=== PATIENT | male | born 1990 | race Caucasian/White ===

== ENCOUNTER 2016-10-11 21:31 | Emergency (ER) | payer OTHER ==
[~2016-10-11] VITALS: Ht 180.3 cm; Wt 86.0 kg
[~2016-10-11 21:31] MED LIST: BACT800T5 PO; CEPH-460 PO
[2016-10-11 21:33] VITALS: BP 124/78; PULSE 78; RESP 16; TEMP 97.9; O2SAT 97
--- NOTE | 2016-10-11 22:35 | PD ---
HPI Chief Complaint: Fall Time Seen by Provider: 22:32 Travel History International Travel<30 days: No Contact w/Intl Traveler<30days: No Traveled to known affect area: No History of Present Illness HPI 26-year-old [id number] white male presents emergency department for evaluation of left elbow pain. He states that he went to slide underneath his vehicle on a piece of cardboard when he slid off striking his left elbow on the concrete. He states that he had immediate pain and tingling in his hand like hitting his funny bone. He has had persistent pain in his elbow since then. It occurred sometime around 5 PM. Pain is moderate. No focal weakness. No other injury. PFSH Past Medical History Medical History: Denies Significant Hx Diminished Hearing: No Immunizations Current: Yes Tetanus Vaccination: < 5 Years Past Surgical History Surgical History: No Previous Surgery Social History Alcohol Use: Yes (SOC) Tobacco Use: Yes Substance Use: No Allergies-Medications (Allergen,Severity, Reaction): Coded Allergies: No Known Allergies (Verified , 10/11/16) Reported Meds & Prescriptions Reported Meds & Active Scripts Active Diclofenac Sodium DR (Diclofenac Sodium) 50 Mg Tabdr 50 Mg PO TID Review of Systems Except as stated in HPI: all other systems reviewed are Neg Physical Exam Narrative GENERAL: Well-developed, well-nourished in no acute distress. Nontoxic appearing. HEAD: Normocephalic, atraumatic. EYES: Pupils equal round and reactive. Extraocular motions intact. No scleral icterus. No injection or drainage. ENT: TMs clear without erythema. The external auditory canals clear. Nose: clear . Posterior pharynx is pink and moist. No tonsillar edema or exudate. Uvula midline. Airway patent. NECK: Trachea midline.Supple, nontender, moves head freely. No central bony tenderness or spasm. CARDIOVASCULAR: Regular rate and rhythm without murmurs, gallops, or rubs. RESPIRATORY: Clear to auscultation. Breath sounds equal bilaterally. No wheezes , rales, or rhonchi. GASTROINTESTINAL: Abdomen soft, non-tender, nondistended. No hepato-splenomegaly , or palpable masses. No guarding. EXTREMITIES: No clubbing, cyanosis, or edema. No joint tenderness, effusion, or edema noted. Examination of the left upper extremity reveals tenderness over the lateral portion of the epicondyle. No crepitus. There is minimal swelling. He is able to fully extend and flex his arm at the elbow. He is able supinate and pronate. The skin is intact. No pain in the wrist, hand. He has intact median/ulnar/radial nerves. BACK: Nontender without deformity or crepitance. No flank tenderness. Data Data Last Documented VS Vital Signs Date Time Temp Pulse Resp B/P Pulse Ox O2 Delivery O2 Flow Rate FiO2 10/11/16 21:33 97.9 78 16 124/78 97 Room Air Orders Elbow, Complete (4 Vws) (10/11/16 22:31) Ice/Cold Pack (10/11/16 22:31) Acetamin-Hydrocod 325-5 Mg ([place] 5-325 (10/11/16 22:45) Ibuprofen (Motrin) (10/11/16 22:45) MDM Medical Decision Making Medical Screen Exam Complete: Yes Emergency Medical Condition: Yes Medical Record Reviewed: Yes Interpretation(s) X-ray left elbow: Negative for acute bony injury Differential Diagnosis MDM: High Differential diagnoses: Fracture, sprain, strain, dislocation, contusion, neurovascular injury Narrative Course X-rays of the left elbow are negative for trauma. Patient's given Lortab 5 mg by mouth and Motrin 800 mg by mouth. This left elbow contusion Diagnosis Primary Impression: Left elbow contusion Patient Instructions: Narcotic given in the ED, General Instructions Additional Instructions: Rest. Elevation. Ice for the next 1-2 days. Diclofenac. Limited use of the left arm until pain resolves. Follow-up with a primary care doctor in 1 week. Return to ER for any problems. Med/Other Pt SpecificInfo: Prescription(s) given Scripts Diclofenac Sodium DR 50 Mg Tabdr50 Mg PO TID #30 TAB Prov:Shankar Arcos MD 10/11/16 Disposition: 01 DISCHARGE HOME Condition: Stable Jeremiah Fernandez Oct 11, 2016 22:35
[2016-10-11] MEDS ORDERED: DICL50TA3 PO (22:36)
[2016-10-11] MEDS ORDERED: IBUPROFEN 800 MG TAB PO ONE (22:45)
[2016-10-11] MEDS ORDERED: ACETAMINOPHEN/HYDROcodone 325 MG/5 MG TAB PO ONE (22:45)
--- NOTE | 2016-10-11 22:57 | RADRPT ---
EXAM DATE/TIME: 10/11/2016 22:54 [facility] COMPARISON: ELBOW LEFT COMPLETE (4 VWS), October 11, 2014, 14:38. INDICATIONS : Fall. Left elbow pain. MEDICAL HISTORY : None. SURGICAL HISTORY : None. ENCOUNTER: Initial ACUITY: 1 day PAIN SCORE: 8/10 LOCATION: Left upper extremity FINDINGS: Multiple view examination of the left elbow demonstrates no soft tissue swelling, joint effusion, or fracture. The osseous structures are in normal alignment. Bony mineralization is normal. CONCLUSION: Unremarkable examination of the left elbow. Venancio Al Jr., MD on October 11, 2016 at 22:54 Board Certified Radiologist. This report was verified electronically.
== END 2016-10-12 00:01 | disposition home or self-care (01) ==
LOC: NEPB 21:31
DX: Z72.0 Tobacco use (principal); S50.02XA Contusion of left elbow, initial encounter; W22.8XXA Striking against or struck by other objects, initial encounter; Y93.89 Activity, other specified
CPT/HCPCS: 73080; 99283

== ENCOUNTER 2017-10-30 01:04 | Emergency (ER) | payer SELFPAY ==
[~2017-10-30] VITALS: Ht 180.3 cm; Wt 93.7 kg
[~2017-10-30 01:04] MED LIST changes: -BACT800T5 PO; -CEPH-460 PO; +DICL50TA3 PO
[2017-10-30 01:15] VITALS: BP 149/89; PULSE 83; RESP 12; TEMP 98.1; O2SAT 98
[2017-10-30 02:53] VITALS: BP 127/79; PULSE 67; RESP 20; O2SAT 98
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
[2017-10-30] MEDS ORDERED: BUTA1CAP PO (04:05)
[2017-10-30] MEDS ORDERED: AUGM875T3 PO (04:05)
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
[2017-10-30 04:17] VITALS: BP 122/74
== END 2017-10-30 04:20 | disposition home or self-care (01) ==
LOC: PHED 01:04
DX: J01.00 Acute maxillary sinusitis, unspecified (principal); Z72.0 Tobacco use
CPT/HCPCS: 70450; 99284